=== PATIENT | female | born 1970 | race Caucasian/White ===

== ENCOUNTER 2017-04-28 10:26 | Outpatient (CLI) | payer OTHER | END 2017-04-28 19:59 | disposition home or self-care (01) | LOC: SMA 10:26 | PROVIDERS: ATTEND Obstetrics & Gynecology Gynecology | DX: Z12.31 Encounter for screening mammogram for malignant neoplasm of breast (principal) | CPT/HCPCS: G0202 ==

== ENCOUNTER 2017-05-06 08:59 | Outpatient (CLI) | payer OTHER | END 2017-05-06 21:01 | disposition home or self-care (01) | LOC: SUS 08:59 | PROVIDERS: ATTEND Obstetrics & Gynecology Gynecology | DX: N60.02 Solitary cyst of left breast (principal) | CPT/HCPCS: 76642 ==

== ENCOUNTER 2018-06-14 08:27 | Outpatient (CLI) | payer OTHER | END 2018-06-14 20:42 | disposition home or self-care (01) | LOC: SMA 08:27 | PROVIDERS: ATTEND Obstetrics & Gynecology Gynecology | DX: Z12.31 Encounter for screening mammogram for malignant neoplasm of breast (principal) | CPT/HCPCS: 77067 ==

== ENCOUNTER 2018-07-20 08:32 | Day surgery (SDC) | payer OTHER ==
[2018-07-19 15:47] LABS: PROTHROMBIN TIME 9.9 SECS (9.5-12.5)
[2018-07-19 15:49] LABS: ALBUMIN 3.8 g/dL (3.4-4.8); CALCIUM 8.9 mg/dL (8.4-11.0); CREATININE 0.83 mg/dL (0.55-1.30); TOTAL BILIRUBIN 0.6 mg/dL (0.0-1.0)
[2018-07-19 15:52] LABS: BASOPHILS # (AUTO) 0.1 K/uL (0.0-0.2); BASOPHILS % (AUTO) 0.8 % (0.0-2.0); EOSINOPHILS # (AUTO) 0.7 K/uL (0.0-0.4); EOSINOPHILS % (AUTO) 7.5 % (0.0-4.0); HEMATOCRIT 40.4 % (36-48); HEMOGLOBIN 13.2 g/dL (12.0-16.0); LYMPHOCYTES # (AUTO) 2.7 K/uL (1.0-5.5); LYMPHOCYTES % (AUTO) 30.4 % (20.5-51.5); MEAN CORPUSCULAR HEMOGLOBIN 31 pg (27-31); MEAN CORPUSCULAR HGB CONC 33 % (32-36); MEAN CORPUSCULAR VOLUME 96 fL (79.0-98.0); MONOCYTES # (AUTO) 0.6 K/uL (0.0-1.0); MONOCYTES % (AUTO) 7.1 % (1.7-9.3); NEUTROPHILS # (AUTO) 4.7 K/uL (1.8-7.7); NEUTROPHILS % (AUTO) 54.2 % (40.0-70.0); PLATELET COUNT (AUTO) 290 K/uL (130-430); WHITE BLOOD COUNT (AUTO) 8.8 K/uL (4.8-10.8)
[2018-07-19 16:08] LABS: BILIRUBIN,URINE NEGATIVE (NEGATIVE); BLOOD, URINE 1+ (NEGATIVE); CLARITY/URINE CLEAR (CLEAR); COLOR,URINE YELLOW (YELLOW); GLUCOSE,URINE NEGATIVE (NEGATIVE); KETONES,URINE NEGATIVE (NEGATIVE); LEUKOCYTE ESTERASE ,URINE NEGATIVE (NEGATIVE); NITRITE, URINE NEGATIVE (NEGATIVE); PROTEIN URINE NEGATIVE (NEGATIVE); UROBILINOGEN,URINE 0.2 (0.2-1.0)
[2018-07-19 16:21] LABS: BACTERIA,URINE FEW /HPF (None Seen); MUCUS,URINE None Seen /LPF (None Seen); RBC,URINE 0-3 /HPF (0-3); WBC,URINE 0-3 /HPF (0-3)
[~2018-07-20] VITALS: Ht 165.1 cm; Wt 63.5 kg
[~2018-07-20 08:32] MED LIST: CEFAZOLIN SOD 2 GM in D5W 50 ML IV ONE
[2018-07-20] MEDS ORDERED: KETOROLAC TROMETHAMINE 30 MG VIAL IVP PRN (11:45)
[2018-07-20] MEDS ORDERED: fentaNYL CITRATE/PF 100 MCG/2 ML AMP IVP PRN ×2 (11:45)
[2018-07-20] MEDS ORDERED: HYDROcodone/ACETAMIN 5-325 MG TAB (NORCO/ VICODIN) PO PRN ×2 (12:15)
[2018-07-20] MEDS ORDERED: PROMETHAZINE HCL 25 MG/ML AMP IM PRN (12:15)
[2018-07-20] MEDS ORDERED: LR 1,000 ML IV.SOLN IV ONE (12:20)
[2018-07-20] MEDS ORDERED: PHENYLEPHRINE HCL 10 MG/ML VIAL (NEOSYNEPHRINE) ONE (12:20)
[2018-07-20] MEDS ORDERED: MIDAZOLAM HCL 5 MG/ML VIAL (VERSED) IV ONE (12:20)
[2018-07-20] MEDS ORDERED: ONDANSETRON HCL 4 MG/2 ML VIAL ONE (12:20)
[2018-07-20] MEDS ORDERED: PROPOFOL 200MG/ 20ML VIAL (DIPRIVAN) IV ONE (12:20)
[2018-07-20] MEDS ORDERED: KETOROLAC TROMETHAMINE 30 MG VIAL ONE (12:20)
[2018-07-20] MEDS ORDERED: NS IRRIG SOLN 5000 ML IR ONE (12:20)
[2018-07-20] MEDS ORDERED: SEVOFLURANE 15 MIN GAS INH ONE (12:20)
[2018-07-20 13:29] VITALS: BP_SYST 115
== END 2018-07-20 14:35 | disposition home or self-care (01) ==
LOC: SDS 08:32 → SMU 08:33 → SDS 14:35
PROVIDERS: ATTEND Obstetrics & Gynecology Gynecology
DX: N84.0 Polyp of corpus uteri (principal); I10 Essential (primary) hypertension; K58.9 Irritable bowel syndrome, unspecified; Z79.899 Other long term (current) drug therapy; Z98.890 Other specified postprocedural states; Z98.818 Other dental procedure status; Z82.49 Family history of ischemic heart disease and other diseases of the circulatory system; Z83.3 Family history of diabetes mellitus; Z88.2 Allergy status to sulfonamides
CPT/HCPCS: 36415; 58558; 71046; 80053; 81000; 84703; 85025; 85610; 85730; 86886; 86900; 86901; 88305; 93005; C1819; J0690; J1885; J2250; J2370; J2405; J2704; J7060; J7120

== ENCOUNTER 2019-06-13 13:05 | Outpatient (CLI) | payer OTHER | END 2019-06-13 20:36 | disposition home or self-care (01) | LOC: SMA 13:05 | PROVIDERS: ATTEND General Practice | DX: Z12.31 Encounter for screening mammogram for malignant neoplasm of breast (principal) | CPT/HCPCS: 77067 ==

== ENCOUNTER 2020-06-19 08:55 | Outpatient (CLI) | payer OTHER | END 2020-06-19 21:19 | disposition home or self-care (01) | LOC: SMA 08:55 | PROVIDERS: ATTEND Obstetrics & Gynecology Gynecology | DX: Z12.31 Encounter for screening mammogram for malignant neoplasm of breast (principal) | CPT/HCPCS: 77067 ==

== ENCOUNTER 2020-08-15 08:33 | Outpatient (CLI) | payer OTHER | END 2020-08-15 19:55 | disposition home or self-care (01) | LOC: SUS 08:33 | PROVIDERS: ATTEND Obstetrics & Gynecology Gynecology | DX: N64.89 Other specified disorders of breast (principal); R92.8 Other abnormal and inconclusive findings on diagnostic imaging of breast | CPT/HCPCS: 76641 ==

== ENCOUNTER 2021-05-28 09:27 | Outpatient (CLI) | payer OTHER | END 2021-05-29 07:47 | disposition home or self-care (01) | LOC: SMA 09:27 | PROVIDERS: ATTEND Obstetrics & Gynecology Gynecology | DX: N63.13 Unspecified lump in the right breast, lower outer quadrant (principal); N63.24 Unspecified lump in the left breast, lower inner quadrant; R92.8 Other abnormal and inconclusive findings on diagnostic imaging of breast | CPT/HCPCS: 76641; 77066 ==

== ENCOUNTER 2022-04-09 16:51 | Emergency (ER) | payer OTHER ==
[~2022-04-09] VITALS: Ht 165.1 cm; Wt 68.0 kg
[2022-04-09 16:58] VITALS: BP_SYST 136
[2022-04-09] MEDS ORDERED: TRANEXAMIC ACID 1,000 MG/10 ML VIAL IV ONE (17:15)
[2022-04-09] MEDS ORDERED: LIDOCAINE/EPI 2% 1:100000 20 ML VIAL INJ ONE (17:15)
[2022-04-09] MEDS ORDERED: DIPH-TET-PERTUS Vaccine 0.5 ML VIAL (ADACEL) I.M. ONE (18:30)
[2022-04-09] MEDS ORDERED: ACETAMINOPHEN 500 MG TABLET PO ONE (18:30)
[2022-04-09] MEDS ORDERED: CEPH-548 PO (20:38)
[2022-04-09] MEDS ORDERED: cephALEXin 500 MG CAPSULE PO ONE (20:45)
[2022-04-09 20:58] VITALS: BP_SYST 126
== END 2022-04-09 20:58 | disposition home or self-care (01) ==
LOC: SED 16:51
DX: S61.311A Laceration without foreign body of left index finger with damage to nail, initial encounter (principal); R51.9 Headache, unspecified; Z88.2 Allergy status to sulfonamides; W26.0XXA Contact with knife, initial encounter; Y93.89 Activity, other specified; Y92.89 Other specified places as the place of occurrence of the external cause; Y99.8 Other external cause status
CPT/HCPCS: 73140; 90471; 90715; 99283; J3490

== ENCOUNTER 2022-06-10 08:52 | Outpatient (CLI) | payer OTHER ==
[~2022-06-10 08:52] MED LIST changes: -CEFAZOLIN SOD 2 GM in D5W 50 ML IV ONE; +CEPH-548 PO
== END 2022-06-10 20:26 | disposition home or self-care (01) ==
LOC: SMA 08:52
PROVIDERS: ATTEND Obstetrics & Gynecology Gynecology
DX: N60.02 Solitary cyst of left breast (principal); N63.24 Unspecified lump in the left breast, lower inner quadrant; N60.01 Solitary cyst of right breast; R92.2 Inconclusive mammogram
CPT/HCPCS: 76641; 77066

== ENCOUNTER 2023-06-18 12:12 | Outpatient (CLI) | payer OTHER | END 2023-06-18 19:14 | disposition home or self-care (01) | LOC: SMA 12:12 | PROVIDERS: ATTEND Obstetrics & Gynecology Gynecology | DX: Z12.39 Encounter for other screening for malignant neoplasm of breast (principal); N60.02 Solitary cyst of left breast; N60.01 Solitary cyst of right breast | CPT/HCPCS: 76641; 77067 ==

== ENCOUNTER 2024-07-25 08:52 | Outpatient (CLI) | payer OTHER | END 2024-07-25 20:09 | disposition home or self-care (01) | LOC: SMA 08:52 | PROVIDERS: ATTEND Obstetrics & Gynecology Gynecology | DX: N60.02 Solitary cyst of left breast (principal); N60.01 Solitary cyst of right breast; R92.333 Mammographic heterogeneous density, bilateral breasts; R92.30 Dense breasts, unspecified | CPT/HCPCS: 76641; 77066 ==